=== PATIENT | male | born 1975 | race African-American/Black ===

== ENCOUNTER 2017-01-31 11:36 | Emergency (ER) | payer OTHER ==
[~2017-01-31] VITALS: Ht 175.3 cm; Wt 80.6 kg
[2017-01-31] MEDS ORDERED: FLEXERIL10 MG PO (12:19)
[2017-01-31 14:26] VITALS: BP 125/79
== END 2017-01-31 14:26 ==
LOC: EME 11:36
DX: S46.811A Strain of other muscles, fascia and tendons at shoulder and upper arm level, right arm, initial encounter (principal); V54.6XXA Passenger in pick-up truck or van injured in collision with heavy transport vehicle or bus in traffic accident, initial encounter; Z87.891 Personal history of nicotine dependence
CPT/HCPCS: 99281; 99283; J1885